=== PATIENT | female | born 1985 | race African-American/Black ===

== ENCOUNTER 2016-12-06 13:39 | Emergency (ER) | payer MEDICAID, OTHER ==
[~2016-12-06] VITALS: Ht 167.6 cm; Wt 72.6 kg
[2016-12-06 14:45] LABS: Hematocrit 39.3 % (36.0-46.0); Hemoglobin 12.4 g/dL (12.2-16.2); Mean Corpuscular Hemoglobin 23.3 pg (28.0-32.0); Mean Corpuscular Hgb Conc. 31.7 g/dL (32.0-36.0); Mean Corpuscular Volume 73.6 fL (80.0-100.0); Mean Platelet Volume 7.6 fL (6.9-10.8); Platelet Count (auto) 327 10^3/uL (140-450); White Blood Cell 5.1 10^3/uL (4.4-10.8)
[2016-12-06 15:00] LABS: Albumin 3.8 g/dL (3.4-5.0); BUN/Creatinine Ratio 5.7; Bilirubin, Total 0.2 mg/dL (0.2-1.0); Calcium 8.5 mg/dL (8.5-10.1); Potassium 3.3 mmol/L (3.5-5.1); Total Protein 8.4 g/dL (6.4-8.2)
[2016-12-06 15:25] LABS: Metamyelocytes % 0; Myelocytes % 0; Promyelocytes % 0; Reactive Lymphocytes 0
[2016-12-06 17:05] LABS: Urine Bilirubin Negative (Negative); Urine Blood 2+ /uL (Negative); Urine Color Yellow (Yellow); Urine Glucose Normal (Normal); Urine Ketone Negative (Negative); Urine Mucus FEW (None Seen); Urine Nitrite Negative (Negative); Urine RBC <1 /hpf (0 - 4); Urine Squamous Epithelial Cell FEW /hpf (<5); Urine Urobilinogen Normal (Negative)
[2016-12-06 18:37] LABS: Platelet Estimate Adequate
[2016-12-06 18:38] LABS: Anisocytosis Slight; Hypochromia Moderate; Microcytosis Moderate; Ovalocytes FEW
[2016-12-06] MEDS ORDERED: POTASSIUM CHL 20 Meq TABLET PO ONE (22:00)
[2016-12-07 00:20] VITALS: BP 125/77
== END 2016-12-07 00:36 | disposition home or self-care (01) ==
LOC: ER 13:39
DX: R42 Dizziness and giddiness (principal); R53.1 Weakness
CPT/HCPCS: 36415; 80053; 81001; 81025; 85007; 85027; 93005; 99285; J7030

== ENCOUNTER 2017-11-09 12:55 | Emergency (ER) | payer MEDICAID, OTHER ==
[~2017-11-09] VITALS: Ht 167.6 cm; Wt 76.2 kg
[2017-11-09 14:18] LABS: Eosinophils # (auto) 0.1 uL; Hemoglobin 8.3 g/dL (12.2-16.2); Lymphocytes # (auto) 2.8 uL
[2017-11-09 14:21] LABS: Basophils # (auto) 0.2 uL; Basophils % (auto) 2.5 % (0.0-2.0); Eosinophils % (auto) 1.3 % (0.0-7.0); Hematocrit 26.8 % (36.0-46.0); Lymphocytes % (auto) 44.9 % (10.0-50.0); Mean Corpuscular Hemoglobin 19.8 pg (28.0-32.0); Mean Corpuscular Hgb Conc. 30.8 g/dL (32.0-36.0); Mean Corpuscular Volume 64.3 fL (80.0-100.0); Monocytes # (auto) 0.5 uL; Monocytes % (auto) 8.5 % (0.0-12.0); Neutrophils # (auto) 2.7 uL; Neutrophils % (auto) 42.8 % (37.0-80.0); Nucleated Red Blood Cells % 0.1 %; Platelet Count (auto) 350 10^3/uL (140-450); Red Blood Cells 4.16 10^6/uL (4.0-5.20); Red Cell Distribution Width 16.5 % (11.8-14.3); White Blood Cell 6.3 10^3/uL (4.4-10.8)
[2017-11-09 14:35] LABS: INR 1.02 (0.9-1.15); Partial Thromboplastin Time 25.6 sec (23.78-33.04); Prothrombin Time 10.9 sec (9.27-12.13)
[2017-11-09 14:38] LABS: Albumin 3.5 g/dL (3.4-5.0); BUN/Creatinine Ratio 7.9; Calcium 8.2 mg/dL (8.5-10.1); Potassium 3.6 mmol/L (3.5-5.1)
[2017-11-09 14:41] LABS: Bilirubin, Total 0.2 mg/dL (0.2-1.0); Total Protein 7.8 g/dL (6.4-8.2)
[2017-11-09 18:50] VITALS: BP 139/96
[2017-11-09 19:05] VITALS: BP 134/99
[2017-11-09] MEDS ORDERED: diphenhdrAMINE HCL 25 MG CAP PO ONE (20:15)
[2017-11-09 21:55] VITALS: BP 132/88
[2017-11-09 23:00] VITALS: BP 128/85
[2017-11-10 00:16] VITALS: BP 114/72
== END 2017-11-10 00:16 | disposition home or self-care (01) ==
LOC: ER 12:55
DX: N93.9 Abnormal uterine and vaginal bleeding, unspecified (principal); D64.9 Anemia, unspecified; R53.1 Weakness
CPT/HCPCS: 36415; 36430; 80053; 84702; 85025; 85610; 85730; 86850; 86900; 86901; 86920; 94761; 99284; P9016

== ENCOUNTER 2020-09-20 12:45 | Emergency (ER) | payer MEDICAID ==
[~2020-09-20] VITALS: Ht 167.6 cm; Wt 77.1 kg
[2020-09-20 14:12] VITALS: BP 130/100
== END 2020-09-20 15:23 | disposition home or self-care (01) ==
LOC: ER 12:45
DX: J02.9 Acute pharyngitis, unspecified (principal)
CPT/HCPCS: 70360; 74018

== ENCOUNTER 2022-06-21 19:07 | Observation (INO) | payer MEDICAID ==
[~2022-06-21] VITALS: Ht 167.6 cm; Wt 80.3 kg
[2022-06-21] MEDS ORDERED: PREN1TAB48 PO (19:38)
[2022-06-21 20:20] LABS: Urine Bacteria NONE SEEN /hpf (None Seen); Urine Blood Negative /uL (Negative); Urine Specific Gravity 1.013 (1.001-1.035); Urine WBC 2 /hpf (0 - 5)
[2022-06-21 20:37] LABS: Alcohol, Urine < 3.0 mg/dL (0-10); Amphetamine Screen, Urine NEGATIVE (NEGATIVE); Barbiturate Scree,Urine NEGATIVE (NEGATIVE); Benzodiazephine Screen, Urine NEGATIVE (NEGATIVE); Cannabinoid Screen, Urine NEGATIVE (NEGATIVE); Cocaine Screen, Urine NEGATIVE (NEGATIVE); Opiate Scree,Urine NEGATIVE (NEGATIVE); Phencyclidine Screen, Urine NEGATIVE (NEGATIVE)
== END 2022-06-21 20:25 | disposition home or self-care (01) ==
LOC: LDRP 19:07
PROVIDERS: ADMIT Obstetrics & Gynecology; ATTEND Obstetrics & Gynecology
DX: O36.8120 Decreased fetal movements, second trimester, not applicable or unspecified (principal); Z20.822 Contact with and (suspected) exposure to COVID-19; Z3A.19 19 weeks gestation of pregnancy; Z87.891 Personal history of nicotine dependence
CPT/HCPCS: 36415; 80307; 81001; 81002; 87426; 94760; G0378

== ENCOUNTER 2022-08-21 00:13 | Observation (INO) | payer MEDICAID ==
[~2022-08-21 00:13] MED LIST: PREN1TAB48 PO
[2022-08-21 01:10] LABS: Alcohol, Urine < 3.0 mg/dL (0-10); Amphetamine Screen, Urine NEGATIVE (NEGATIVE); Barbiturate Scree,Urine NEGATIVE (NEGATIVE); Benzodiazephine Screen, Urine NEGATIVE (NEGATIVE); Cannabinoid Screen, Urine NEGATIVE (NEGATIVE); Cocaine Screen, Urine NEGATIVE (NEGATIVE); Opiate Scree,Urine NEGATIVE (NEGATIVE); Phencyclidine Screen, Urine NEGATIVE (NEGATIVE)
== END 2022-08-21 01:18 | disposition home or self-care (01) ==
LOC: LDRP 00:13
PROVIDERS: ADMIT Obstetrics & Gynecology; ATTEND Obstetrics & Gynecology
DX: O62.9 Abnormality of forces of labor, unspecified (principal); O13.3 Gestational [pregnancy-induced] hypertension without significant proteinuria, third trimester; O26.893 Other specified pregnancy related conditions, third trimester; E87.6 Hypokalemia; O99.013 Anemia complicating pregnancy, third trimester; D64.9 Anemia, unspecified; Z3A.29 29 weeks gestation of pregnancy; Z79.899 Other long term (current) drug therapy
CPT/HCPCS: 59025; 80307; 81002; 94760; G0378